=== PATIENT | male | born 1990 | race Caucasian/White ===

== ENCOUNTER 2019-03-15 10:47 | Emergency (ER) | payer OTHER ==
[~2019-03-15] VITALS: Ht 175.3 cm; Wt 74.8 kg
[2019-03-15] MEDS ORDERED: OMEPRAZOLE MAGN20 MG (11:01)
[2019-03-15] MEDS ORDERED: VITAL-D RX TAB1 EACH (11:03)
== END 2019-03-15 14:30 | disposition home or self-care (01) ==
LOC: ER 10:47
DX: K29.60 Other gastritis without bleeding (principal)